=== PATIENT | female | born 1970 | race Caucasian/White ===

== ENCOUNTER 2016-11-27 08:30 | Inpatient (IN) | payer OTHER ==
[2016-11-18 10:00] LABS: BASOPHILS 0.5 %; BASOPHILS ABSOLUTE 0.02 10/3/uL (0.0-0.16); EOSINOPHILS 2.8 %; EOSINOPHILS ABSOLUTE 0.12 10/3/uL (0.0-0.53); HEMATOCRIT 35.1 % (36.0-48.0); HEMOGLOBIN 11.4 g/dL (12.0-16.0); IMMATURE GRANULOCYTES 0.9 %; IMMATURE GRANULOCYTES ABSOLUTE 0.04 10/3/uL (0.0-0.11); LYMPHOCYTES 38.6 %; LYMPHOCYTES ABSOLUTE 1.68 10/3/uL (0.67-4.30); MEAN CORPUS HGB CONC 32.5 g/dL (32.0-36.0); MEAN CORPUSCULAR HEMOGLOB 25.7 pg (26.0-34.0); MEAN CORPUSCULAR VOLUME 79.2 fL (80-100); MEAN PLATELET VOLUME 8.2 fL (9.2-13.0); MONOCYTES ABSOLUTE 0.48 10/3/uL (0.21-1.20); NEUTROPHILS 46.2 %; NEUTROPHILS ABSOLUTE 2.01 10/3/uL (2.02-8.40); PLATELET COUNT 292 10/3/uL (150-400); RBC DISTRIBUTION WIDTH 14.9 % (12.0-16.0); RED CELL COUNT 4.43 10/6/uL (4.0-5.6)
[2016-11-18 10:01] LABS: MANUAL DIFF NO %; WHITE BLOOD CELLS 4.4 10/3/uL (4.5-10.5)
[2016-11-18 10:16] LABS: ALBUMIN 3.3 G/DL (3.5-5.0); ALKALINE PHOSPHATASE 104 U/L (45-117); BUN (BLOOD UREA NITROGEN) 11 MG/DL (6-23); CALCIUM, SERUM 8.7 MG/DL (8.5-10.4); CHLORIDE, SERUM 105 MMOL/L (96-112); CO2 (CARBON DIOXIDE) 27 MMOL/L (24-34); CREATININE 0.55 MG/DL (0.55-1.02); GFR AFRICAN AMERICAN 131 ML/MIN (>=60); GFR NON AFRICAN AMERICAN 113 ML/MIN (>=60); GLOBULIN 3.2 G/DL (2.5-4.1); GLUCOSE, SERUM 129 MG/DL (60-99); POTASSIUM, SERUM 3.6 MMOL/L (3.5-5.3); SGOT(AST) 39 U/L (5-40); SGPT(ALT) 58 U/L (5-65); SODIUM, SERUM 142 MMOL/L (135-148); TOTAL BILIRUBIN 0.4 MG/DL (0-1.2); TOTAL PROTEIN 6.5 G/DL (6.0-8.5)
--- NOTE | ~2016-11-27 | PREOPHP ---
PreOp History and Physical [address] [address] NAME: DANIELLE GEORGE : 70 STATUS : PRE IN PAT#: [id number] AGE: 45 ADM/REG DATE : MR#: [id number] REPORT SERV DATE: 11/26/16 DICTATED BY: MARCOS LOTT III DATE: 10/29/16 REPORT STATUS : Draft TRANSCRIBED BY: MIRANDA DATE: 10/29/16 HISTORY OF PRESENT ILLNESS: This 45-year-old female comes to the operating room for open repair of recurrent symptomatic incisional hernia. The patient has incisional hernia in her mid abdomen. The hernia is symptomatic in terms of local pain and discomfort. The patient has had no nausea, vomiting, or obstructive symptoms. She comes to the operating room now for repair of this hernia. The patient had a previous hernia repair in July of last year. This hernia is located just at the superior aspect of the previous incision. The hernia is located midway between the umbilicus and xiphoid process. PAST MEDICAL HISTORY: 1. Hypertension. 2. Crohn's disease. 3. Obesity. MEDICATIONS: Cymbalta, enalapril, Aldactone, Apriso, metformin, gabapentin, oxycodone, and Flexeril. PAST SURGICAL HISTORY: Include appendectomy, cholecystectomy, repair of incarcerated incisional hernia with mesh. FAMILY HISTORY: Positive for heart disease and diabetes. SOCIAL HISTORY: The patient has a previous tobacco abuse. No history of alcohol use. ALLERGIES: NONE. PHYSICAL EXAMINATION: GENERAL: A very obese female, in no acute distress. She is alert oriented x3. VITAL SIGNS: Blood pressure 152/93, temperature 97, heart rate 108. HEENT: Unremarkable. Cranial cervical II through XII are normal. LUNGS: Clear. CARDIAC: Normal. ABDOMEN: Obese with a large overhanging panniculus, but soft, nontender. She has incisional hernia at the superior aspect of her previous incision which is reducible. EXTREMITIES: Normal. ASSESSMENT: 1. A 45-year-old female with symptomatic recurrent incisional hernia. 2. Obesity. 3. Hypertension. 4. History of Crohn's disease. 5. History of incisional hernia repair in the past. PLAN: The patient comes to the operating room now for open repair of this recurrent incisional hernia. This procedure, the risks, benefits, and alternatives, including not PreOp History and Physical [address] [address] NAME: DANIELLE GEORGE : 70 STATUS : PRE IN PAT#: [id number] AGE: 45 ADM/REG DATE : MR#: [id number] REPORT SERV DATE: 11/26/16 DICTATED BY: MARCOS LOTT III DATE: 10/29/16 REPORT STATUS : Draft TRANSCRIBED BY: MIRANDA DATE: 10/29/16 limited to the risk for bleeding, infection, enterotomy, injury to abdominal structure, postop small bowel obstruction, ileus, seroma formation, hematoma formation, infection of the mesh or enterocutaneous fistula requiring removal of the mesh, and unforeseen complications including deep venous thrombosis, pulmonary embolus, myocardial infarction, stroke, pneumonia, and , have been fully and completely explained to patient in length prior to surgery. The fact that this is a major operation with risk for major morbidity and mortality has been explained. The expected length of recovery was explained. The fact that she has increased risk for recurrence of the hernia, increased risk of enterotomy or surgical complications due to her previous surgery and obesity has been explained fully. The patient's questions were answered. She clearly understands the risks and agrees to surgery as planned. MCKENZIE/MIRANDA Marcos Lott III, M.D. / [id number]
--- NOTE | ~2016-11-27 | OP ---
Record Of Operation [facility] [address] [place]. [address] NAME: DANIELLE GEORGE : 70 STATUS : ADM IN [facility]#: [id number] AGE: 45 ADM/REG DATE : 11/27/16 MR#: [id number] REPORT SERV DATE: 11/27/16 DICTATED BY: MARCOS LOTT III DATE: 11/27/16 REPORT STATUS : Draft TRANSCRIBED BY: MODJosé Miguel DATE: 11/27/16 DATE OF PROCEDURE: 11/27/2016 PREOPERATIVE DIAGNOSIS: Recurrent symptomatic incisional hernia. POSTOPERATIVE DIAGNOSIS: Recurrent symptomatic incisional hernia, recurrent symptomatic incarcerated incisional hernia. PROCEDURE: Open repair of recurrent symptomatic incisional hernia with Prolene mesh. SURGEON: Marcos Lott M.D. ANESTHESIA: General with intubation. COMPLICATIONS: None. ESTIMATED BLOOD LOSS: 20 mL. SPECIMENS: Hernia sac and portion of old mesh. DRAINS: Seymour-Espino in subcutaneous tissue. LAP AND SPONGE COUNT: Correct x3. BRIEF HISTORY: This 45-year-old female presented with a symptomatic recurrent supraumbilical incisional hernia. It was felt that open repair of this hernia was indicated. This procedure, the risks, benefits, and alternatives, including but not limited to the risk for bleeding, infection, enterotomy, injury to any abdominal structure, postop small bowel obstruction, ileus, recurrence of the hernia, seroma formation, hematoma formation, infection of the mesh, or enterocutaneous fistula requiring removal of the mesh, and unforeseen complications including deep venous thrombosis, pulmonary embolus, myocardial infarction, stroke, pneumonia, and , were fully explained to the patient prior to surgery. The fact that this was a major operation with risk for major morbidity and mortality was explained. The expected length of recovery was explained. The patient's questions were answered. She understood the risks and agreed to surgery as planned. PROCEDURE IN DETAIL: After being properly identified and after discussing risks of surgery with her again in the preoperative area, and after identifying the hernia with her in the preoperative area, the patient was taken to the operating room and placed in the supine position on the operating room table. General anesthesia was administered. She was intubated without difficulty. The abdomen was prepped and draped sterilely in usual fashion. After an appropriate "time-out" per JCAHO standards, a midline incision was made directly over the hernia, over the previous incision, midway between the umbilicus and xiphoid process. The incision was continued superiorly and inferiorly slightly. The incision was continued through the subcutaneous tissue. Directly beneath the subcutaneous tissue, we encountered incarcerated omentum. The fascial defect itself was about 3 cm in Record Of Operation [facility] [id number] [place]. [address] NAME: DANIELLE GEORGE : 70 STATUS : ADM IN PAT#: [id number] AGE: 45 ADM/REG DATE : 11/27/16 MR#: [id number] REPORT SERV DATE: 11/27/16 DICTATED BY: MARCOS LOTT III DATE: 11/27/16 REPORT STATUS : Draft TRANSCRIBED BY: MIRANDA DATE: 11/27/16 size. There was a large amount of omentum which was incarcerated within the hernia sac. Using sharp dissection, the hernia sac was dissected free from the surrounding tissues. The omentum was reduced back carefully into the abdominal cavity. The patient was noted to be very obese with a very thick abdominal wall. There were some adhesions between the omentum and the underside of the fascia posteriorly. These were carefully divided. The skin and subcutaneous tissue around the fascial defect anteriorly was fully mobilized around the entire periphery of the defect, so as to fully define the fascial edges anteriorly and posteriorly by about 3 cm. Hemostasis was assured. A lightweight Prolene-coated mesh was then selected and placed beneath the fascia. The mesh was placed so as to underlie the edges of the fascia by about 3 cm on all sides. The mesh was then secured around the edges of the fascia with short segments of #1 Prolene sutures. Upon completion of this, the mesh lay nicely posterior to the defect. It was not twisted or kinked in any way. It was not under any tension. We were then able to close the fascia anterior to this and a 2nd layer with interrupted #1 Prolene sutures. The fascia came together nicely with minimal tension. Hemostasis was assured. The subcutaneous tissue was irrigated copiously with saline. A Seymour-Espino drain was brought through a separate stab wound and placed in the subcutaneous tissue. The subcutaneous tissue was closed with running 3-0 chromic suture. The skin was closed with a running subcuticular 4-0 Monocryl stitch. The incision was injected with 0.5% Marcaine. Dressings were applied. Anesthesia was reversed. The patient was taken to the recovery room in stable condition. She tolerated the procedure well. Her family was informed results of surgery. The patient will remain in the hospital for postoperative care. RHJ/MODL Marcos Lott III, M.D. / [id number] CC: Marcos Lott III, M.D.
[~2016-11-27 08:30] MED LIST: CYMBALTA60 PO; GLUCOPHXR PO; HEMOCYTE324 MG PO; LIPITOR10 PO; NAP500 PO; PRILOSEC OTC20 MG PO; VASOTEC5 PO
[2016-11-28 06:46] LABS: BUN (BLOOD UREA NITROGEN) 6 MG/DL (6-23); CALCIUM, SERUM 8.5 MG/DL (8.5-10.4); CHLORIDE, SERUM 101 MMOL/L (96-112); CO2 (CARBON DIOXIDE) 28 MMOL/L (24-34); CREATININE 0.55 MG/DL (0.55-1.02); GFR AFRICAN AMERICAN 131 ML/MIN (>=60); GFR NON AFRICAN AMERICAN 113 ML/MIN (>=60); GLUCOSE, SERUM 120 MG/DL (60-99); POTASSIUM, SERUM 3.4 MMOL/L (3.5-5.3); SODIUM, SERUM 138 MMOL/L (135-148)
[2016-11-28 06:56] LABS: BASOPHILS 0.2 %; BASOPHILS ABSOLUTE 0.02 10/3/uL (0.0-0.16); EOSINOPHILS 2.2 %; EOSINOPHILS ABSOLUTE 0.21 10/3/uL (0.0-0.53); HEMOGLOBIN 10.5 g/dL (12.0-16.0); IMMATURE GRANULOCYTES 0.4 %; IMMATURE GRANULOCYTES ABSOLUTE 0.04 10/3/uL (0.0-0.11); LYMPHOCYTES 16.7 %; LYMPHOCYTES ABSOLUTE 1.57 10/3/uL (0.67-4.30); MEAN CORPUS HGB CONC 32.6 g/dL (32.0-36.0); MEAN CORPUSCULAR HEMOGLOB 25.6 pg (26.0-34.0); MEAN CORPUSCULAR VOLUME 78.5 fL (80-100); MEAN PLATELET VOLUME 8.3 fL (9.2-13.0); MONOCYTES 8.9 %; MONOCYTES ABSOLUTE 0.84 10/3/uL (0.21-1.20); NEUTROPHILS 71.6 %; NEUTROPHILS ABSOLUTE 6.71 10/3/uL (2.02-8.40); PLATELET COUNT 289 10/3/uL (150-400); RBC DISTRIBUTION WIDTH 14.7 % (12.0-16.0)
[2016-11-28 07:16] LABS: HEMATOCRIT 32.2 % (36.0-48.0); WHITE BLOOD CELLS 9.4 10/3/uL (4.5-10.5)
[2016-11-28] MEDS ORDERED: PERCOCET 7.5/321 TAB PO (07:16)
[2016-11-28 07:17] LABS: MANUAL DIFF NO %
[2016-11-28 07:30] LABS: HYPOCHROMIA 1+ (3-10/OIF) (0-2/OIF); PLATELET ESTIMATE ADQ (ADEQUATE)
[2017-04-23] MEDS ORDERED: SPIR100 PO (10:39)
[2017-04-23] MEDS ORDERED: APRISO0.375 GM PO (10:41)
== END 2016-11-28 10:57 | disposition home or self-care (01) | DRG 354 ==
LOC: SDC/OF 08:30 → PACU 12:01 → 5SO 13:40
PROVIDERS: Surgery
PROC: 0WUF0JZ Supplement Abdominal Wall with Synthetic Substitute, Open Approach (ICD-10-PCS; principal; 2016-11-27 10:00)
DX: K43.2 Incisional hernia without obstruction or gangrene (principal); Z68.42 Body mass index [BMI] 45.0-49.9, adult; K50.90 Crohn's disease, unspecified, without complications; I10 Essential (primary) hypertension; Z91.030 Bee allergy status; Z79.84 Long term (current) use of oral hypoglycemic drugs; Z79.899 Other long term (current) drug therapy; Z87.891 Personal history of nicotine dependence; E66.01 Morbid (severe) obesity due to excess calories; E11.9 Type 2 diabetes mellitus without complications
CPT/HCPCS: 47000; 71020; 77012; 80048; 80053; 82962; 85025; 87641; 88302; 88307; 88333; 88334; 93005; A9270-GY; C1781; J0690; J1170; J2250; J2405; J2710; J3010

== ENCOUNTER 2016-12-09 11:05 | Day surgery (SDC) | payer OTHER ==
--- NOTE | ~2016-12-09 | PREOPHP ---
PreOp History and Physical [facility] [id number] [place]. [address] NAME: DANIELLE GEORGE : 70 STATUS : [facility]#: [id number] AGE: 45 ADM/REG DATE : 12/09/16 MR#: [id number] REPORT SERV DATE: 12/10/16 DICTATED BY: MARCOS LOTT III DATE: 12/08/16 REPORT STATUS : Draft TRANSCRIBED BY: MIRANDA DATE: 12/08/16 HISTORY OF PRESENT ILLNESS: This 45-year-old female comes to the operating room for removal of a Seymour-Espino abdominal wall drain. The patient is status post repair of an incisional hernia. She came to the office for removal of her ASAEL drain. The drain is adherent in the abdominal wall and could not be removed. She comes now for removal of this drain. PAST MEDICAL HISTORY: 1. History of repair of recurrent symptomatic incisional hernia, performed on 11/02/2016. 2. Hypertension. 3. Crohn disease. 4. Obesity. MEDICATIONS: Cymbalta, enalapril, Aldactone, Apriso, metformin, gabapentin, oxycodone, and Flexeril. PAST SURGICAL HISTORY: Includes appendectomy, cholecystectomy, incisional hernia repair x2 with mesh. FAMILY HISTORY: Positive for heart disease and diabetes. SOCIAL HISTORY: The patient has a previous tobacco use. No history of alcohol use. PHYSICAL EXAMINATION: GENERAL: She is a female, in no acute distress. She is obese. She is alert and oriented x3. HEENT: Unremarkable. Cranial nerves II through XII were normal. LUNGS: Clear. CARDIAC: Normal. ABDOMEN: Soft, nontender. She has a well-healed midline incision. She has a Seymour-Espino drain in place, which cannot be removed with normal amount of tension. ASSESSMENT: A 45-year-old female with: 1. Need for removal of abdominal wall Seymour-Espino drain. 2. History of repair of recurrent incisional hernia on 11/27/2016. 3. Obesity. 4. Hypertension. 5. Crohn disease. PLAN: The patient comes to the operating room now for removal of this anterior abdominal wall drain, which will likely involve reopening a portion of the incision superficially. This procedure, the risks, benefits, and alternatives, including not limited to the risk for bleeding, infection, pain, swelling, unforeseen complications including deep venous thrombosis, pulmonary embolus, myocardial infarction, stroke, pneumonia, and , have been explained to the patient. Her questions had been answered. She understands the risks and agrees to surgery as planned. PreOp History and Physical [address] [address] NAME: DANIELLE GEORGE : 70 STATUS : [facility] PAT#: [id number] AGE: 45 ADM/REG DATE : 12/09/16 MR#: [id number] REPORT SERV DATE: 12/10/16 DICTATED BY: MARCOS LOTT III DATE: 12/08/16 REPORT STATUS : Draft TRANSCRIBED BY: MIRANDA DATE: 12/08/16 Nini/MIRANDA Marcos Lott III, M.D. / [id number]
--- NOTE | ~2016-12-09 | OP ---
Record Of Operation [facility] [address] [place]. [address] NAME: DANIELLE GEORGE : 70 STATUS : [facility]#: [id number] AGE: 45 ADM/REG DATE : 12/09/16 MR#: [id number] REPORT SERV DATE: 12/09/16 DICTATED BY: MARCOS LOTT III DATE: 12/09/16 REPORT STATUS : Draft TRANSCRIBED BY: MIRANDA DATE: 12/09/16 DATE OF PROCEDURE: 12/09/2016 PREOPERATIVE DIAGNOSIS: Anterior abdominal wall Seymour-Espino drain with need for removal. POSTOPERATIVE DIAGNOSIS: Anterior abdominal wall Seymour-Espino drain with need for removal. PROCEDURE: Removal of anterior abdominal wall Seymour-Espino drain. SURGEON: Marcos Lott M.D. ANESTHESIA: General with intubation. COMPLICATIONS: None. ESTIMATED BLOOD LOSS: Less than 5 mL. SPECIMENS: Drain for identification. LAP AND SPONGE COUNT: Correct x3. BRIEF HISTORY: This 45-year-old female, who is several weeks status post repair of an incisional hernia. A Seymour-Espino drain was adherent into the subcutaneous tissue and could not be removed in the office. It was felt that removal of her drain in the operating room through an incision was indicated. This procedure, the risks, benefits, and alternatives, including but not limited to the risk for bleeding, infection, enterotomy, injury to any abdominal structure, postop small bowel obstruction, ileus, seroma formation, hematoma formation, recurrent seroma formation, and unforeseen complications including deep venous thrombosis, pulmonary embolus, myocardial infarction, stroke, pneumonia, and , were explained the patient prior to surgery. The patient had questions, which were answered. She understood the risks and agreed to the surgery as planned. DESCRIPTION OF PROCEDURE: After being properly identified and after discussing risks of surgery with her again in the preoperative area, she was taken to the operating room, and placed in the supine position on the operating room table. General anesthesia was administered. She was intubated without difficulty. The abdomen was prepped and draped sterilely in the usual fashion. After an appropriate "time-out" per JCAHO standards, a small incision was made over the previous incision over the mid abdomen. The incision was about 2 cm in length. The incision was continued through the subcutaneous tissue. Hemostasis was controlled with cautery. The entrance of the drain into the wound was identified. The drain became dislodged easily. The drain appeared to be adherent to the subcutaneous tissue. It immediately was easily removed once the subcutaneous tissue was opened. There were no apparent reasons for the drain to have been so difficult to remove other than it was adherent to the subcutaneous tissue. The wound was irrigated copiously with saline. Hemostasis was assured. The subcutaneous tissue was closed with a running 3-0 chromic suture. The skin was closed with running subcuticular 4-0 Monocryl stitch. The Record Of Operation [facility] [address] [facility] [place]. [address] NAME: DANIELLE GEORGE : 70 STATUS : [facility]#: [id number] AGE: 45 ADM/REG DATE : 12/09/16 MR#: [id number] REPORT SERV DATE: 12/09/16 DICTATED BY: MARCOS LOTT III DATE: 12/09/16 REPORT STATUS : Draft TRANSCRIBED BY: MIRANDA DATE: 12/09/16 incision was injected with 0.5% Marcaine. Dressings were applied. Anesthesia was reversed and the patient was taken to the recovery room in stable condition. She tolerated the procedure well. Her family was informed the results of surgery. The patient will be discharged when stable and comfortable. Her family was advised that she should keep the wound clean and dry for 48 hours, that she should not drive for two to three days after surgery or while using narcotics and that she should resume her usual medications. She has been asked to return in two weeks for followup or sooner if any fever, chills, wound drainage, or other problems prior to that time. She was given a prescription for Percocet 7.5 one t.i.d., #12, as needed for pain which she was advised not to use while driving. Again she was asked to return in two weeks for followup sooner if any fever, chills, wound drainage, or other problems prior to that time. MCKENZIE/MIRANDA Marcos Lott III, M.D. / [id number] CC: Ralph Thomas III, M.D.
[~2016-12-09 11:05] MED LIST changes: +PERCOCET 7.5/321 TAB PO
[2017-04-23] MEDS ORDERED: SPIR100 PO (10:39)
[2017-04-23] MEDS ORDERED: APRISO0.375 GM PO (10:41)
== END 2016-12-09 16:41 | disposition home or self-care (01) ==
LOC: SDC 11:05
PROVIDERS: Surgery
PROC: 0WPF00Z Removal of Drainage Device from Abdominal Wall, Open Approach (ICD-10-PCS; principal; 2016-12-09 13:00)
DX: Z48.03 Encounter for change or removal of drains (principal); I10 Essential (primary) hypertension; E66.9 Obesity, unspecified; E11.9 Type 2 diabetes mellitus without complications; M19.90 Unspecified osteoarthritis, unspecified site; D64.9 Anemia, unspecified; Z87.891 Personal history of nicotine dependence; Z90.49 Acquired absence of other specified parts of digestive tract; Z98.890 Other specified postprocedural states; Z90.710 Acquired absence of both cervix and uterus
CPT/HCPCS: 82962; 88300; J0690; J2250; J2405; J3010